=== PATIENT | male | born 1950 | race Caucasian/White ===

== ENCOUNTER → 2018-03-16 | Outpatient (CLI) | payer OTHER ==
[~2018-03-16] MED LIST: ALEN70TA39 PO; ATEN-100 PO; CALC500T21 PO; CELE100C PO; CITRTAB8 PO; CYAN1000P IM; FISH1000 PO; HYDR-3534 PO; LOSA25TA31 PO; NORC7.5T PO; RIVA10 PO; [UNRECOGNIZED DRUG - SUPPLY]
--- NOTE | 2018-03-17 09:49 | RSPPFT ---
DATE OF PROCEDURE: 03/16/18 COMMENTS: The forced vital capacity is markedly reduced. The FEV1 and FEF 25-75 are both markedly reduced with minimal improvement after bronchodilator. The FEV1/FVC ratio is reduced. The total lung capacity is normal with an increased residual volume and an increased RV/TLC ratio. IMPRESSION: This is compatible with mild, large and small airways, irreversible obstructive lung disease. The diffusion capacity, when corrected, is normal.
== END ==
LOC: PHRSP 07:22
PROVIDERS: ATTEND Internal Medicine
DX: R06.02 Shortness of breath (principal)
CPT/HCPCS: 94060; 94726; 94729